=== PATIENT | female | born 1955 | race Two or more races ===

== ENCOUNTER 2016-12-24 09:11 | Inpatient (IN) | payer MEDICAID, OTHER ==
[~2016-12-24] VITALS: Ht 157.5 cm; Wt 55.9 kg
[2016-12-24] MEDS ORDERED: SODIUM CHLORIDE 0.9% 1,000 ML IV ONE (09:13)
[2016-12-24 10:05] LABS: Basophils # (auto) 0 uL; Basophils % (auto) 0.3 % (0.0-2.0); Eosinophils # (auto) 0.2 uL; Eosinophils % (auto) 5.4 % (0.0-7.0); Hematocrit 30.3 % (36.0-46.0); Hemoglobin 10.1 g/dL (12.2-16.2); Lymphocytes % (auto) 23.1 % (10.0-50.0); Mean Corpuscular Hemoglobin 27.6 pg (28.0-32.0); Mean Corpuscular Hgb Conc. 33.4 g/dL (32.0-36.0); Mean Corpuscular Volume 82.7 fL (80.0-100.0); Mean Platelet Volume 8.4 fL (7.4-10.4); Monocytes # (auto) 0.3 uL; Monocytes % (auto) 6.7 % (0.0-12.0); Neutrophils # (auto) 2.7 uL; Neutrophils % (auto) 64.5 % (37.0-80.0); Platelet Count (auto) 199 10^3/uL (140-450); Red Cell Distribution Width 16.5 % (11.6-16.0); White Blood Cell 4.3 10^3/uL (4.4-10.8)
[2016-12-24 10:21] LABS: Partial Thromboplastin Time 30.2 sec (22.64-33.71)
[2016-12-24 10:22] LABS: INR 2.25 (0.9-1.15); Prothrombin Time 24.7 sec (9.37-12.3)
[2016-12-24 10:28] LABS: Albumin 3.3 g/dL (3.4-5.0); BUN/Creatinine Ratio 23.3; Bilirubin, Total 0.3 mg/dL (0.2-1.0); Calcium 8.4 mg/dL (8.5-10.1); Magnesium 2.3 mg/dL (1.6-2.6); Potassium 5.4 mmol/L (3.5-5.1); Total Protein 6.8 g/dL (6.4-8.2)
[2016-12-24] MEDS ORDERED: LORazepam 0.5 MG TAB PO PRN (12:30)
[2016-12-24] MEDS ORDERED: HYDROcodone-ACET 5/325MG TAB PO PRN (12:30)
[2016-12-24] MEDS ORDERED: LACTULOSE 20Gm/30ML SOLN PO PRN (12:30)
[2016-12-24] MEDS ORDERED: DEXTROSE (50%) 50ML SYRG IV PRN (12:30)
[2016-12-24] MEDS ORDERED: NITROGLYCERIN 0.4 MG SL TAB SL PRN (12:30)
[2016-12-24] MEDS ORDERED: FUROSEMIDE 40 MG/4 ML VIAL IV ONE (12:30)
[2016-12-24] MEDS ORDERED: MORPHINE SULF INJ 2 MG/ML SYRINGE 1ML IV PRN ×2 (12:30)
[2016-12-24] MEDS ORDERED: LORazepam 2MG/ML-1ML VIAL IV PRN (12:30)
[2016-12-24] MEDS ORDERED: PROMETHAZINE HCL 25 MG/ML 1ML IV PRN (12:30)
[2016-12-24] MEDS ORDERED: SODIUM POLYSTYRENE SULF 15GM/60ML SUSP PO ONE (12:30)
[2016-12-24] MEDS ORDERED: LEVETIRACETAM 500 MG TAB PO ONE (12:45)
[2016-12-24] MEDS ORDERED: PANTOPRAZOLE 40 MG TAB PO ONE (12:45)
[2016-12-24] MEDS ORDERED: CARVEDILOL 3.125 MG TAB PO ONE (12:45)
[2016-12-24] MEDS ORDERED: NITROGLYCERIN 0.2MG/HR TOPICAL PATCH TD ONE (12:45)
[2016-12-24 13:20] LABS: Temperature: 23.5 C (20.0-25.0)
[2016-12-24] MEDS: SODIUM CHLOR 0.9% PF (SALINE LOCK) 10ML VIAL IV SCH ×2 (14:00→22:00)
[2016-12-24 14:15] VITALS: BP 136/63
[2016-12-24 15:54] VITALS: BP 139/53
[2016-12-24] MEDS: InsuLIN REG 1unit/0.01ml Soln (100units/ml) SC SCH ×2 (16:00→20:17)
[2016-12-24] MEDS: ACCU-CHEK COMFORT CURVE STRIP VI SCH ×2 (16:00→20:17)
[2016-12-24] MEDS ORDERED: WARFARIN SODIUM 2.5 MG TAB PO ONE (17:00)
[2016-12-24 20:00] VITALS: BP 158/52
[2016-12-24 20:15] VITALS: BP 148/60
[2016-12-24] MEDS ORDERED: INSLISPI SC (21:14)
[2016-12-24] MEDS ORDERED: BACL20TA PO (21:14)
[2016-12-24] MEDS ORDERED: ATOR20TA50 PO (21:14)
[2016-12-24] MEDS ORDERED: DIG0125T PO (21:14)
[2016-12-24] MEDS ORDERED: METO25TA3 PO (21:14)
[2016-12-24] MEDS ORDERED: GLIM2TAB33 PO (21:14)
[2016-12-24] MEDS ORDERED: WARF7.5T PO (21:14)
[2016-12-24] MEDS ORDERED: LEVO25TA49 PO (21:14)
[2016-12-24] MEDS ORDERED: BEN10T PO (21:14)
[2016-12-24] MEDS ORDERED: DOCU-94 PO (21:14)
[2016-12-24] MEDS ORDERED: INSLANTI SC (21:14)
[2016-12-24] MEDS: LEVETIRACETAM 500 MG TAB PO SCH (21:29)
[2016-12-24] MEDS: ATORVASTATIN 20 MG TAB PO SCH (21:29)
[2016-12-24] MEDS: CARVEDILOL 3.125 MG TAB PO SCH (21:30)
[2016-12-24] MEDS: ACETAMINOPHEN 500 MG TAB PO PRN (21:33)
[2016-12-24] MEDS ORDERED: LEVETIRACETAM 500 MG TAB PO SCH (22:00)
[2016-12-25] MEDS: ACCU-CHEK COMFORT CURVE STRIP VI SCH ×6 (00:10→20:15)
[2016-12-25 00:15] VITALS: BP 133/69
[2016-12-25] MEDS: InsuLIN REG 1unit/0.01ml Soln (100units/ml) SC SCH ×6 (00:15→20:15)
[2016-12-25 04:10] VITALS: BP 121/66
[2016-12-25] MEDS: SODIUM CHLOR 0.9% PF (SALINE LOCK) 10ML VIAL IV SCH ×3 (05:04→21:43)
[2016-12-25 05:44] LABS: Basophils # (auto) 0 uL; Basophils % (auto) 0.4 % (0.0-2.0); Eosinophils # (auto) 0.3 uL; Hematocrit 32.9 % (36.0-46.0); Hemoglobin 10.9 g/dL (12.2-16.2); Lymphocytes # (auto) 1.4 uL; Lymphocytes % (auto) 25.4 % (10.0-50.0); Mean Corpuscular Hemoglobin 27.5 pg (28.0-32.0); Mean Corpuscular Hgb Conc. 33.2 g/dL (32.0-36.0); Mean Corpuscular Volume 82.9 fL (80.0-100.0); Mean Platelet Volume 9.1 fL (7.4-10.4); Monocytes # (auto) 0.4 uL; Monocytes % (auto) 6.7 % (0.0-12.0); Neutrophils # (auto) 3.4 uL; Neutrophils % (auto) 62.5 % (37.0-80.0); Platelet Count (auto) 213 10^3/uL (140-450); White Blood Cell 5.4 10^3/uL (4.4-10.8)
[2016-12-25 05:57] LABS: Partial Thromboplastin Time 29.4 sec (22.64-33.71)
[2016-12-25 06:04] LABS: INR 1.92 (0.9-1.15); Prothrombin Time 21.1 sec (9.37-12.3)
[2016-12-25 06:15] LABS: B-Type Natriuretic Peptide 68.2 pg/mL (0-100); Temperature: 21.4 C (20.0-25.0)
[2016-12-25 06:20] LABS: Albumin 3.2 g/dL (3.4-5.0); BUN/Creatinine Ratio 22.7; Bilirubin, Total 0.4 mg/dL (0.2-1.0); Calcium 8.9 mg/dL (8.5-10.1); Total Protein 6.9 g/dL (6.4-8.2)
[2016-12-25 08:00] VITALS: BP 127/66
[2016-12-25] MEDS: FUROSEMIDE 40 MG/4 ML VIAL IV SCH (09:43)
[2016-12-25] MEDS: NITROGLYCERIN 0.2MG/HR TOPICAL PATCH TD SCH (09:46)
[2016-12-25] MEDS: PANTOPRAZOLE 40 MG TAB PO SCH (09:47)
[2016-12-25] MEDS: CARVEDILOL 3.125 MG TAB PO SCH ×2 (09:47→21:44)
[2016-12-25] MEDS: LEVETIRACETAM 500 MG TAB PO SCH ×2 (09:47→21:43)
[2016-12-25 12:00] VITALS: BP 109/59
[2016-12-25] MEDS ORDERED: WARFARIN SODIUM 5 MG TAB PO ONE (17:00)
[2016-12-25] MEDS: ATORVASTATIN 20 MG TAB PO SCH (21:44)
[2016-12-25 22:00] VITALS: BP 125/66
[2016-12-25] MEDS: diphenhdrAMINE HCL 50 MG/1 ML VL IV PRN (22:20)
[2016-12-26] MEDS: ACCU-CHEK COMFORT CURVE STRIP VI SCH ×7 (00:12→23:35)
[2016-12-26] MEDS: TEMAZEPAM 15 MG CAP PO PRN ×2 (00:14→21:35)
[2016-12-26] MEDS: InsuLIN REG 1unit/0.01ml Soln (100units/ml) SC SCH ×7 (03:33→23:35)
[2016-12-26 05:00] VITALS: BP 119/55
[2016-12-26] MEDS: SODIUM CHLOR 0.9% PF (SALINE LOCK) 10ML VIAL IV SCH ×3 (05:41→21:34)
[2016-12-26 06:58] LABS: Partial Thromboplastin Time 28.1 sec (22.64-33.71)
[2016-12-26 06:59] LABS: Basophils # (auto) 0 uL; Basophils % (auto) 0.3 % (0.0-2.0); Eosinophils # (auto) 0.4 uL; Hematocrit 33.3 % (36.0-46.0); Hemoglobin 11.3 g/dL (12.2-16.2); Lymphocytes # (auto) 1.4 uL; Lymphocytes % (auto) 22.2 % (10.0-50.0); Mean Corpuscular Hemoglobin 28.2 pg (28.0-32.0); Mean Corpuscular Hgb Conc. 33.9 g/dL (32.0-36.0); Mean Corpuscular Volume 83.2 fL (80.0-100.0); Mean Platelet Volume 9.2 fL (7.4-10.4); Monocytes # (auto) 0.4 uL; Monocytes % (auto) 6.1 % (0.0-12.0); Neutrophils # (auto) 4.1 uL; Neutrophils % (auto) 65.4 % (37.0-80.0); Platelet Count (auto) 220 10^3/uL (140-450); White Blood Cell 6.3 10^3/uL (4.4-10.8)
[2016-12-26 07:04] LABS: Albumin 3.3 g/dL (3.4-5.0); Calcium 8.8 mg/dL (8.5-10.1); Potassium 4.3 mmol/L (3.5-5.1)
[2016-12-26 07:12] LABS: BUN/Creatinine Ratio 23.4; Bilirubin, Total 0.5 mg/dL (0.2-1.0); INR 1.72 (0.9-1.15); Prothrombin Time 18.8 sec (9.37-12.3); Total Protein 7.2 g/dL (6.4-8.2)
[2016-12-26 09:00] VITALS: BP 111/57
[2016-12-26] MEDS: diphenhdrAMINE HCL 50 MG/1 ML VL IV PRN ×2 (10:17→19:40)
[2016-12-26] MEDS: NITROGLYCERIN 0.2MG/HR TOPICAL PATCH TD SCH (10:17)
[2016-12-26] MEDS: FUROSEMIDE 40 MG/4 ML VIAL IV SCH (10:18)
[2016-12-26] MEDS: ACETAMINOPHEN 500 MG TAB PO PRN (10:18)
[2016-12-26] MEDS: PANTOPRAZOLE 40 MG TAB PO SCH (10:19)
[2016-12-26] MEDS: CARVEDILOL 3.125 MG TAB PO SCH ×2 (10:19→21:34)
[2016-12-26] MEDS: LEVETIRACETAM 500 MG TAB PO SCH ×2 (10:19→21:35)
[2016-12-26 13:00] VITALS: BP 99/65
[2016-12-26 17:00] VITALS: BP 100/54
[2016-12-26] MEDS ORDERED: WARFARIN SODIUM 2.5 MG TAB PO ONE (17:00)
[2016-12-26 20:00] VITALS: BP 111/68
[2016-12-26] MEDS: ATORVASTATIN 20 MG TAB PO SCH (21:35)
[2016-12-26 22:00] VITALS: BP 111/68
[2016-12-27] MEDS: ACCU-CHEK COMFORT CURVE STRIP VI SCH ×4 (03:33→16:00)
[2016-12-27] MEDS: InsuLIN REG 1unit/0.01ml Soln (100units/ml) SC SCH ×4 (03:33→16:00)
[2016-12-27 04:59] VITALS: BP 115/66
[2016-12-27 05:58] LABS: Partial Thromboplastin Time 28.2 sec (22.64-33.71)
[2016-12-27 06:03] LABS: INR 1.67 (0.9-1.15); Prothrombin Time 18.3 sec (9.37-12.3)
[2016-12-27 06:09] LABS: Potassium 4.1 mmol/L (3.5-5.1)
[2016-12-27 06:20] LABS: BUN/Creatinine Ratio 22.6; Calcium 9.1 mg/dL (8.5-10.1)
[2016-12-27] MEDS: SODIUM CHLOR 0.9% PF (SALINE LOCK) 10ML VIAL IV SCH ×2 (06:28→14:00)
[2016-12-27 08:00] VITALS: BP 115/56
[2016-12-27 09:00] VITALS: BP 115/56
[2016-12-27] MEDS: FUROSEMIDE 40 MG/4 ML VIAL IV SCH (09:53)
[2016-12-27] MEDS: CARVEDILOL 3.125 MG TAB PO SCH (09:56)
[2016-12-27] MEDS: PANTOPRAZOLE 40 MG TAB PO SCH (09:57)
[2016-12-27] MEDS: NITROGLYCERIN 0.2MG/HR TOPICAL PATCH TD SCH (09:58)
[2016-12-27] MEDS ORDERED: LEVETIRACETAM 500 MG TAB PO SCH (10:00)
[2016-12-27] MEDS: diphenhdrAMINE HCL 50 MG/1 ML VL IV PRN (10:20)
[2016-12-27 13:00] VITALS: BP 120/72
[2016-12-27] MEDS ORDERED: WARFARIN SODIUM 2 MG TAB PO ONE (17:00)
== END 2016-12-27 16:06 | disposition home or self-care (01) | DRG 53 ==
LOC: ER 09:13 → EEVIPCON 09:13 → DOU 09:14 → DOU IN ICU 14:04 → TELE-CENTR 12-25 16:05
PROVIDERS: ADMIT Internal Medicine; ATTEND Internal Medicine
DX: G40.909 Epilepsy, unspecified, not intractable, without status epilepticus (principal); N17.9 Acute kidney failure, unspecified; D68.59 Other primary thrombophilia; E11.22 Type 2 diabetes mellitus with diabetic chronic kidney disease; E11.65 Type 2 diabetes mellitus with hyperglycemia; I13.0 Hypertensive heart and chronic kidney disease with heart failure and stage 1 through stage 4 chronic kidney disease, or unspecified chronic kidney disease; I50.40 Unspecified combined systolic (congestive) and diastolic (congestive) heart failure; I48.92 Unspecified atrial flutter; I48.91 Unspecified atrial fibrillation; E44.1 Mild protein-calorie malnutrition; E87.5 Hyperkalemia; I08.1 Rheumatic disorders of both mitral and tricuspid valves; L40.9 Psoriasis, unspecified; I25.10 Atherosclerotic heart disease of native coronary artery without angina pectoris; D64.9 Anemia, unspecified; E87.6 Hypokalemia; G93.89 Other specified disorders of brain; H55.00 Unspecified nystagmus; N18.9 Chronic kidney disease, unspecified; Z79.01 Long term (current) use of anticoagulants; Z95.0 Presence of cardiac pacemaker; Z95.2 Presence of prosthetic heart valve; Z68.22 Body mass index [BMI] 22.0-22.9, adult; Z86.73 Personal history of transient ischemic attack (TIA), and cerebral infarction without residual deficits
CPT/HCPCS: 36415; 70450; 71010; 80048; 80053; 82550; 82607; 82746; 82962; 83036; 83735; 83880; 84443; 84484; 85025; 85610; 85652; 85730; 87081; 93005; 93306; 93886; 94761; 95819; 96361; 96374; J1815

== ENCOUNTER 2019-03-19 11:22 | Inpatient (IN) | payer MEDICAID | END 2019-03-23 21:10 | LOC: ER 11:22 → TELE 11:23 → TELE-EAST 17:06 | DX: S42.002A Fracture of unspecified part of left clavicle, initial encounter for closed fracture (principal); A41.9 Sepsis, unspecified organism; G93.41 Metabolic encephalopathy; I50.43 Acute on chronic combined systolic (congestive) and diastolic (congestive) heart failure; N18.3 Chronic kidney disease, stage 3 (moderate); E11.649 Type 2 diabetes mellitus with hypoglycemia without coma; E11.22 Type 2 diabetes mellitus with diabetic chronic kidney disease; D64.9 Anemia, unspecified; I48.91 Unspecified atrial fibrillation; I13.0 Hypertensive heart and chronic kidney disease with heart failure and stage 1 through stage 4 chronic kidney disease, or unspecified chronic kidney disease; L40.9 Psoriasis, unspecified; G81.94 Hemiplegia, unspecified affecting left nondominant side; N39.0 Urinary tract infection, site not specified ==

== ENCOUNTER 2019-04-03 07:50 | Inpatient (IN) | payer MEDICAID | END 2019-04-13 18:55 | LOC: DOU IN ICU 04-04 21:01 → ER 07:50 → TELE 07:51 | PROC: 0DH63UZ Insertion of Feeding Device into Stomach, Percutaneous Approach (ICD-10-PCS; principal; 2019-04-11 12:05) | DX: R65.20 Severe sepsis without septic shock (principal); N17.0 Acute kidney failure with tubular necrosis; E43 Unspecified severe protein-calorie malnutrition; G93.41 Metabolic encephalopathy; G92 Toxic encephalopathy; D68.59 Other primary thrombophilia; I50.43 Acute on chronic combined systolic (congestive) and diastolic (congestive) heart failure; L51.3 Stevens-Johnson syndrome-toxic epidermal necrolysis overlap syndrome; E11.22 Type 2 diabetes mellitus with diabetic chronic kidney disease; D68.69 Other thrombophilia; E44.0 Moderate protein-calorie malnutrition; N18.3 Chronic kidney disease, stage 3 (moderate); E87.0 Hyperosmolality and hypernatremia; I13.0 Hypertensive heart and chronic kidney disease with heart failure and stage 1 through stage 4 chronic kidney disease, or unspecified chronic kidney disease; I50.42 Chronic combined systolic (congestive) and diastolic (congestive) heart failure; I48.91 Unspecified atrial fibrillation; E86.0 Dehydration; N39.0 Urinary tract infection, site not specified; Z95.2 Presence of prosthetic heart valve; L40.9 Psoriasis, unspecified; E86.1 Hypovolemia; R73.9 Hyperglycemia, unspecified; E11.649 Type 2 diabetes mellitus with hypoglycemia without coma; E11.65 Type 2 diabetes mellitus with hyperglycemia; E87.1 Hypo-osmolality and hyponatremia; E87.2 Acidosis; F03.90 Unspecified dementia, unspecified severity, without behavioral disturbance, psychotic disturbance, mood disturbance, and anxiety; F17.200 Nicotine dependence, unspecified, uncomplicated; I67.2 Cerebral atherosclerosis; I69.359 Hemiplegia and hemiparesis following cerebral infarction affecting unspecified side; K59.00 Constipation, unspecified; L29.9 Pruritus, unspecified; M81.0 Age-related osteoporosis without current pathological fracture; W18.30XA Fall on same level, unspecified, initial encounter; Z79.01 Long term (current) use of anticoagulants; Z79.4 Long term (current) use of insulin; Z79.890 Hormone replacement therapy; Z74.01 Bed confinement status; D64.9 Anemia, unspecified ==